=== PATIENT | female | born 1985 | race Caucasian/White ===

== ENCOUNTER 2017-07-17 22:02 | Inpatient (IN) | payer MEDICAID ==
[~2017-07-17] VITALS: Ht 180.3 cm; Wt 106.0 kg
[~2017-07-17 22:02] MED LIST: BUSP10TA23 PO; DIVA500T52 PO; PARO10TA89 PO
[2017-07-17] MEDS ORDERED: ALPR0.255 PO (22:13)
[2017-07-17] MEDS ORDERED: ALPR0.5T8 PO (22:19)
[2017-07-17 22:36] LABS: BASOPHILS % (AUTO) 0.8 % (0.0-2.0); EOSINOPHILS % (AUTO) 1.6 % (1.0-6.0); HEMATOCRIT 47.8 % (36-46); HEMOGLOBIN 15.6 g/dL (12.0-16.0); LYMPHOCYTES # (AUTO) 2.2 K/uL (1.0-4.8); LYMPHOCYTES % (AUTO) 33.9 % (22.0-44.0); MEAN CORPUSCULAR HEMOGLOBIN 27.8 pg (26.0-34.0); MEAN CORPUSCULAR HGB CONC 32.7 G/dL (31.0-37.0); MEAN CORPUSCULAR VOLUME 85 fL (80-100); MONOCYTES # (AUTO) 0.5 K/uL (0.1-1.0); MONOCYTES % (AUTO) 8.4 % (2.0-9.0); NEUTROPHILS # (AUTO) 3.5 K/uL (1.8-7.7); NEUTROPHILS % (AUTO) 55.3 % (40.0-70.0); PLATELET COUNT (AUTO) 308 K/uL (150-450); RED BLOOD CELL COUNT(AUTO) 5.62 MIL/uL (4.00-5.20); RED CELL DISTRIBUTION WIDTH 13.5 % (11.5-14.5)
[2017-07-17] MEDS ORDERED: SODIUM CHLORIDE 0.9% 1,000 ML IV ONE (22:45)
[2017-07-17 22:55] LABS: ANION GAP 10 mmol/L (8-16); CALCIUM, TOTAL 8.4 mg/dL (8.8-10.5); CARBON DIOXIDE 28 mmol/L (22-29); CHLORIDE 106 mmol/L (98-107); CREATININE 0.87 mg/dL (0.60-1.30); GLOMERULAR FILTR. RATE CALC > 60 mL/min (>60); GLUCOSE,RANDOM 110 mg/dL (70-110); POTASSIUM 4.1 mmol/L (3.5-5.1); SODIUM SERUM 144 mmol/L (136-145); UREA NITROGEN, BLOOD 10 mg/dL (7-18)
[2017-07-17 23:02] LABS: ALANINE AMINOTRANSFERASE 108 U/L (12-78); ALBUMIN 3.8 g/dL (3.4-5.0); ALKALINE PHOSPHATASE 93 U/L (46-116); ASPARTATE AMINOTRANSFERASE 63 U/L (15-37); BILIRUBIN,TOTAL 0.1 mg/dL (0.1-1.0); TOTAL PROTEIN, SERUM 8.3 g/dL (6.4-8.2)
[2017-07-17 23:03] LABS: ACETAMINOPHEN < 2 mcg/mL (10-30)
[2017-07-17 23:04] LABS: AMPHET/METH SCREEN,URINE NEGATIVE (NEGATIVE); BARBITURATE SCREEN, URINE NEGATIVE (NEGATIVE); BENZODIAZEPINES SCREEN,URINE POSITIVE (NEGATIVE); CANNABINOID SCREEN,URINE NEGATIVE (NEGATIVE); COCAINE SCREEN,URINE NEGATIVE (NEGATIVE); METHADONE SCREEN, URINE NEGATIVE (NEGATIVE); OPIATE SCREEN,URINE NEGATIVE (NEGATIVE); PHENCYCLIDINE SCREEN,URINE NEGATIVE (NEGATIVE)
[2017-07-17 23:30] LABS: SALICYLATE < 2.8 mg/dL (2.8-20.0)
[2017-07-18] VITALS (8 sets, daily range): BP systolic 117–135; BP diastolic 60–84
[2017-07-18] MEDS ORDERED: HALOPERIDOL 5 MG TABLET PO PRN (04:45)
[2017-07-18] MEDS ORDERED: SERT50TA12 PO (10:36)
[2017-07-18] MEDS ORDERED: INFLUENZA VIRUS VACCINE QVS 2017-18 (3YR+)/PF 60 MCG/0.5 ML SYRINGE IM ONE (11:00)
[2017-07-18] MEDS: SERTRALINE HCL 50 MG TABLET PO SCH ×2 (14:39→16:58)
[2017-07-18] MEDS: LORazepam 2 MG TABLET PO PRN (18:45)
[2017-07-18] MEDS: ZOLPIDEM TARTRATE 10 MG TABLET PO PRN (21:10)
[2017-07-19 01:49] VITALS: BP 129/81
[2017-07-19] MEDS: SERTRALINE HCL 50 MG TABLET PO SCH ×2 (08:38→09:00)
[2017-07-19 08:48] VITALS: BP 140/82
[2017-07-19 08:48] LABS: CHOL/HDL RATIO 3.5 (3.9-5.7)
[2017-07-19] MEDS: LORazepam 2 MG TABLET PO PRN ×2 (10:31→16:13)
[2017-07-19] MEDS ORDERED: SERTRALINE HCL 50 MG TABLET PO SCH (17:00)
[2017-07-19 17:52] VITALS: BP 139/90
[2017-07-19] MEDS: ZOLPIDEM TARTRATE 10 MG TABLET PO PRN (21:48)
[2017-07-20 01:10] VITALS: BP 140/92
[2017-07-20] MEDS: LORazepam 2 MG TABLET PO PRN ×2 (01:11→08:48)
[2017-07-20 08:21] VITALS: BP 141/94
[2017-07-20 08:45] LABS: ALANINE AMINOTRANSFERASE 78 U/L (12-78); ALBUMIN 3.4 g/dL (3.4-5.0); ALKALINE PHOSPHATASE 68 U/L (46-116); ANION GAP 8 mmol/L (8-16); ASPARTATE AMINOTRANSFERASE 46 U/L (15-37); BILIRUBIN,TOTAL 0.6 mg/dL (0.1-1.0); CALCIUM, TOTAL 8.7 mg/dL (8.8-10.5); CARBON DIOXIDE 27 mmol/L (22-29); CHLORIDE 103 mmol/L (98-107); CREATININE 0.72 mg/dL (0.60-1.30); GLOMERULAR FILTR. RATE CALC > 60 mL/min (>60); GLUCOSE,RANDOM 85 mg/dL (70-110); POTASSIUM 3.9 mmol/L (3.5-5.1); SODIUM SERUM 138 mmol/L (136-145); TOTAL PROTEIN, SERUM 7.4 g/dL (6.4-8.2); UREA NITROGEN, BLOOD 14 mg/dL (7-18)
[2017-07-20] MEDS ORDERED: SERTRALINE HCL 100 MG TABLET PO SCH (09:00)
[2017-07-20] MEDS ORDERED: SERT100T12 PO (11:03)
== END 2017-07-20 12:35 | disposition home or self-care (01) | DRG 751 ==
LOC: EMS 22:04 → B2S 07-18 04:30
PROVIDERS: ADMIT Psychiatry & Neurology Child & Adolescent Psychiatry; ATTEND Psychiatry & Neurology Child & Adolescent Psychiatry
PROC: 3E0234Z Introduction of Serum, Toxoid and Vaccine into Muscle, Percutaneous Approach (ICD-10-PCS; principal; 2017-07-18)
DX: F33.2 Major depressive disorder, recurrent severe without psychotic features (principal); K74.60 Unspecified cirrhosis of liver; F17.210 Nicotine dependence, cigarettes, uncomplicated; T42.72XA Poisoning by unspecified antiepileptic and sedative-hypnotic drugs, intentional self-harm, initial encounter; F10.229 Alcohol dependence with intoxication, unspecified; Z23 Encounter for immunization; Y92.89 Other specified places as the place of occurrence of the external cause
CPT/HCPCS: 80074; 93005; 96360; 96361; 99285; G0480; G0481